=== PATIENT | female | born 1995 | race Caucasian/White ===

== ENCOUNTER → 2021-09-04 | Outpatient (CLI) | payer BC ==
[~2021-09-04] MED LIST: cefTRIAXone 500 MG VIAL IM NR
[2021-09-04 11:45] VITALS: BP 135/94; PULSE 61; RESP 16; TEMP 98.2
== END ==
LOC: PROCWHC3 11:20
PROVIDERS: ATTEND Obstetrics & Gynecology
DX: A54.9 Gonococcal infection, unspecified (principal)
CPT/HCPCS: 96372; J0696